=== PATIENT | male | born 1980 | race Caucasian/White ===

== ENCOUNTER 2020-09-11 11:51 | Inpatient (IN) | payer MEDICARE, MEDICAID ==
[~2020-09-11] VITALS: Ht 167.6 cm; Wt 78.3 kg
[2020-09-11] MEDS ORDERED: ZOLPIDEM TARTRATE 10 MG TABLET PO PRN (16:45)
[2020-09-12 02:51] VITALS: BP 101/65
[2020-09-12] MEDS ORDERED: PNEUMOCOCCAL VACCINE POLYVALENT 0.5 ML VIAL [PPSV23] IM. ONE (04:30)
[2020-09-12] MEDS ORDERED: MAGNESIUM HYDROXIDE SUSPENSION 30 ML UDCUP PO PRN (07:15)
[2020-09-12] MEDS ORDERED: DOCUSATE SODIUM 100 MG CAPSULE PO PRN (07:15)
[2020-09-12] MEDS ORDERED: MAG HYDROX/AL HYDROX/SIMETH ES 30 ML SUSPENSION UDCUP PO PRN (07:15)
[2020-09-12] MEDS ORDERED: CloNIDine HCL 0.1 MG TABLET PO PRN (07:15)
[2020-09-12] MEDS ORDERED: GuaiFENesin/D-METHORPHAN [SUGAR-FREE] 200-20MG/10 ML SYRUP UDCUP PO PRN (07:15)
[2020-09-12] MEDS ORDERED: IBUPROFEN 400 MG TABLET PO PRN (07:15)
[2020-09-12] MEDS ORDERED: LOPERAMIDE HCL 2 MG CAPSULE PO PRN (07:15)
[2020-09-12] MEDS ORDERED: PETROLATUM,WHITE 28 GM JELLY TP PRN (07:15)
[2020-09-12] MEDS ORDERED: NICOTINE 14 MG/24 HOUR PATCH TD PRN (07:15)
[2020-09-12] MEDS ORDERED: ONDANSETRON HCL 4 MG TABLET PO PRN (07:15)
[2020-09-12] MEDS ORDERED: ACETAMINOPHEN 325 MG TABLET PO PRN (07:15)
[2020-09-12] MEDS ORDERED: ALBUTEROL SULFATE HFA 90 MCG/PUFF 8 GM INHALER IH PRN (07:15)
[2020-09-12] MEDS ORDERED: INSULIN LISPRO 100 UNITS/ML SQ PRN (07:30)
[2020-09-12] MEDS ORDERED: GLUCAGON,HUMAN RECOMBINANT 1 MG VIAL IM PRN ×2 (07:30→11:30)
[2020-09-12 08:15] VITALS: BP 110/73
[2020-09-12 08:45] LABS: BASOPHILS % (AUTO) 0.1 % (0.0-2.0); EOSINOPHILS % (AUTO) 1.3 % (1.0-6.0); HEMATOCRIT 49.7 % (41-53); HEMOGLOBIN 16.7 g/dL (13.5-17.5); LYMPHOCYTES # (AUTO) 1.2 K/uL (1.0-4.8); LYMPHOCYTES % (AUTO) 21.7 % (22.0-44.0); MEAN CORPUSCULAR HGB CONC 33.5 G/dL (31.0-37.0); MEAN CORPUSCULAR VOLUME 90 fL (80-100); MONOCYTES # (AUTO) 0.3 K/uL (0.1-1.0); MONOCYTES % (AUTO) 5.5 % (2.0-9.0); NEUTROPHILS # (AUTO) 3.9 K/uL (1.8-7.7); NEUTROPHILS % (AUTO) 71.4 % (40.0-70.0); PLATELET COUNT (AUTO) 178 K/uL (150-450); RED BLOOD CELL COUNT(AUTO) 5.55 MIL/uL (4.50-5.90); RED CELL DISTRIBUTION WIDTH 13.9 % (11.5-14.5)
[2020-09-12 09:04] LABS: HEMOGLOBIN A1C 9.6 % (3.8-5.6)
[2020-09-12 09:55] LABS: ALANINE AMINOTRANSFERASE 30 U/L (12-78); ALKALINE PHOSPHATASE 127 U/L (46-116); ANION GAP 7 mmol/L (8-16); ASPARTATE AMINOTRANSFERASE 25 U/L (15-37); BILIRUBIN,TOTAL 0.9 mg/dL (0.1-1.0); CALCIUM, TOTAL 9.7 mg/dL (8.8-10.5); CARBON DIOXIDE 27 mmol/L (22-29); CHLORIDE 98 mmol/L (98-107); CHOL/HDL RATIO 6.4 (4.2-7.3); CHOLESTEROL 210 mg/dL (131-200); CREATININE 1.06 mg/dL (0.60-1.30); GLOMERULAR FILTR. RATE CALC > 60 mL/min (>60); HDL CHOLESTEROL 33 mg/dL (40-60); LDL CHOL (CALC.) 131 mg/dL (0-130); POTASSIUM 4.7 mmol/L (3.5-5.1); SODIUM SERUM 132 mmol/L (136-145); THYROID STIMULATING HORMONE 2.19 uIU/mL (0.36-3.74); TOTAL PROTEIN, SERUM 7.4 g/dL (6.4-8.2); TRIGLYCERIDES 232 mg/dL (15-150); UREA NITROGEN, BLOOD 22 mg/dL (7-18)
[2020-09-12 10:02] LABS: GLUCOSE,RANDOM 454 mg/dL (70-110)
[2020-09-12 10:31] LABS: FREE T4 (FREE THYROXINE) 1.56 ng/dL (0.76-1.46)
[2020-09-12] MEDS ORDERED: INSULIN LISPRO 100 UNITS/ML SQ ONE (11:05)
[2020-09-12 11:38] LABS: GLUCOMETER DEV NAME(LOC) BV2X.; GLUCOSE,POINT OF CARE 548 MG/DL (70-110)
[2020-09-12] MEDS ORDERED: ARIP10TA38 PO (12:10)
[2020-09-12] MEDS ORDERED: HALO100V4 IM (12:14)
[2020-09-12] MEDS ORDERED: INSLAN SQ (12:14)
[2020-09-12] MEDS: ARIPiprazole 15 MG TABLET PO SCH (13:22)
[2020-09-12] MEDS: SERTRALINE HCL 50 MG TABLET PO SCH (13:22)
[2020-09-12 16:14] VITALS: BP 99/68
[2020-09-12 16:22] LABS: GLUCOMETER DEV NAME(LOC) BV2X.; GLUCOSE,POINT OF CARE 297 MG/DL (70-110)
[2020-09-12] MEDS: INSULIN LISPRO 100 UNITS/ML SQ PRN ×2 (17:34→21:06)
[2020-09-12 20:19] LABS: GLUCOMETER DEV NAME(LOC) BV2X.; GLUCOSE,POINT OF CARE 260 MG/DL (70-110)
[2020-09-12] MEDS: INSULIN GLARGINE,HUM.REC.ANLOG 100 UNITS/ML SQ SCH (21:05)
[2020-09-13 00:05] VITALS: BP 101/67
[2020-09-13 06:15] LABS: GLUCOMETER DEV NAME(LOC) BV2X.; GLUCOSE,POINT OF CARE 225 MG/DL (70-110)
[2020-09-13] MEDS: INSULIN LISPRO 100 UNITS/ML SQ PRN ×3 (06:48→16:42)
[2020-09-13] MEDS: ARIPiprazole 15 MG TABLET PO SCH (08:21)
[2020-09-13] MEDS: SERTRALINE HCL 50 MG TABLET PO SCH (08:22)
[2020-09-13 08:36] VITALS: BP 104/61
[2020-09-13 11:13] LABS: GLUCOMETER DEV NAME(LOC) BV2X.; GLUCOSE,POINT OF CARE 316 MG/DL (70-110)
[2020-09-13 16:10] VITALS: BP 106/71
[2020-09-13 16:48] LABS: GLUCOMETER DEV NAME(LOC) BV2X.; GLUCOSE,POINT OF CARE 381 MG/DL (70-110)
[2020-09-13] MEDS: INSULIN GLARGINE,HUM.REC.ANLOG 100 UNITS/ML SQ SCH (21:17)
[2020-09-13 21:37] LABS: GLUCOMETER DEV NAME(LOC) BV2X.; GLUCOSE,POINT OF CARE 248 MG/DL (70-110)
[2020-09-14 00:22] VITALS: BP 102/66
[2020-09-14] MEDS: INSULIN LISPRO 100 UNITS/ML SQ PRN ×4 (07:15→22:02)
[2020-09-14 07:23] LABS: GLUCOMETER DEV NAME(LOC) BV2X.; GLUCOSE,POINT OF CARE 288 MG/DL (70-110)
[2020-09-14 08:00] LABS: ANION GAP 8 mmol/L (8-16); CARBON DIOXIDE 30 mmol/L (22-29); CHLORIDE 106 mmol/L (98-107); CREATININE 1.02 mg/dL (0.60-1.30); GLOMERULAR FILTR. RATE CALC > 60 mL/min (>60); GLUCOSE,RANDOM 277 mg/dL (70-110); POTASSIUM 4.4 mmol/L (3.5-5.1); SODIUM SERUM 144 mmol/L (136-145); UREA NITROGEN, BLOOD 22 mg/dL (7-18)
[2020-09-14 08:03] VITALS: BP 106/60
[2020-09-14] MEDS: ARIPiprazole 15 MG TABLET PO SCH (08:35)
[2020-09-14] MEDS: SERTRALINE HCL 50 MG TABLET PO SCH (08:35)
[2020-09-14 11:22] LABS: GLUCOMETER DEV NAME(LOC) BV2X.; GLUCOSE,POINT OF CARE 318 MG/DL (70-110)
[2020-09-14 16:05] VITALS: BP 107/69
[2020-09-14 16:26] LABS: GLUCOMETER DEV NAME(LOC) BV2X.; GLUCOSE,POINT OF CARE 273 MG/DL (70-110)
[2020-09-14 20:11] LABS: GLUCOMETER DEV NAME(LOC) BV2X.; GLUCOSE,POINT OF CARE 280 MG/DL (70-110)
[2020-09-14] MEDS: INSULIN GLARGINE,HUM.REC.ANLOG 100 UNITS/ML SQ SCH (22:02)
[2020-09-14 22:26] LABS: GLUCOMETER DEV NAME(LOC) BV2X.; GLUCOSE,POINT OF CARE 314 MG/DL (70-110)
[2020-09-15 00:45] VITALS: BP 114/78
[2020-09-15] MEDS: INSULIN LISPRO 100 UNITS/ML SQ PRN ×2 (06:08→11:12)
[2020-09-15 06:16] LABS: GLUCOMETER DEV NAME(LOC) BV2X.; GLUCOSE,POINT OF CARE 351 MG/DL (70-110)
[2020-09-15 08:14] VITALS: BP 127/81
[2020-09-15] MEDS: ARIPiprazole 15 MG TABLET PO SCH (09:13)
[2020-09-15] MEDS: SERTRALINE HCL 50 MG TABLET PO SCH (09:13)
[2020-09-15] MEDS: LORazepam 2 MG TABLET PO PRN (09:13)
[2020-09-15 11:15] LABS: GLUCOMETER DEV NAME(LOC) BV2X.; GLUCOSE,POINT OF CARE 316 MG/DL (70-110)
[2020-09-15 16:04] VITALS: BP 131/78
[2020-09-15] MEDS ORDERED: INSULIN LISPRO 100 UNITS/ML SQ ONE (17:00)
[2020-09-15 17:09] LABS: GLUCOMETER DEV NAME(LOC) BV2X.; GLUCOSE,POINT OF CARE > 600 MG/DL (70-110)
[2020-09-15 19:20] LABS: GLUCOMETER DEV NAME(LOC) BV2X.; GLUCOSE,POINT OF CARE > 600 MG/DL (70-110)
[2020-09-15] MEDS ORDERED: INSULIN GLARGINE,HUM.REC.ANLOG 100 UNITS/ML SQ SCH (21:00)
[2020-09-15 23:07] LABS: GLUCOMETER DEV NAME(LOC) ERT.5; GLUCOSE,POINT OF CARE 365 MG/DL (70-110)
[2020-09-16 02:52] VITALS: BP 116/79
[2020-09-16 03:04] LABS: GLUCOMETER DEV NAME(LOC) BV2X.; GLUCOSE,POINT OF CARE 323 MG/DL (70-110)
[2020-09-16] MEDS: INSULIN LISPRO 100 UNITS/ML SQ PRN ×5 (03:18→20:21)
[2020-09-16 06:06] LABS: GLUCOMETER DEV NAME(LOC) BV2X.; GLUCOSE,POINT OF CARE 185 MG/DL (70-110)
[2020-09-16 08:28] VITALS: BP 104/66
[2020-09-16 09:09] LABS: GLUCOMETER DEV NAME(LOC) BV2X.; GLUCOSE,POINT OF CARE 270 MG/DL (70-110)
[2020-09-16] MEDS: SERTRALINE HCL 50 MG TABLET PO SCH (09:17)
[2020-09-16] MEDS: ARIPiprazole 15 MG TABLET PO SCH (09:17)
[2020-09-16] MEDS: INSULIN GLARGINE,HUM.REC.ANLOG 100 UNITS/ML SQ SCH ×2 (09:37→16:14)
[2020-09-16] MEDS: HALOPERIDOL 5 MG TABLET PO PRN (10:26)
[2020-09-16] MEDS: LORazepam 2 MG TABLET PO PRN (10:26)
[2020-09-16 11:38] LABS: GLUCOMETER DEV NAME(LOC) BV2X.; GLUCOSE,POINT OF CARE 349 MG/DL (70-110)
[2020-09-16 16:08] VITALS: BP 110/72
[2020-09-16 16:44] LABS: GLUCOMETER DEV NAME(LOC) BV2X.; GLUCOSE,POINT OF CARE 313 MG/DL (70-110)
[2020-09-16 20:40] LABS: GLUCOMETER DEV NAME(LOC) BV2X.; GLUCOSE,POINT OF CARE 369 MG/DL (70-110)
[2020-09-17 03:17] VITALS: BP 106/72
[2020-09-17 06:34] LABS: GLUCOMETER DEV NAME(LOC) BV2X.; GLUCOSE,POINT OF CARE 275 MG/DL (70-110)
[2020-09-17] MEDS: INSULIN LISPRO 100 UNITS/ML SQ PRN ×4 (06:53→21:21)
[2020-09-17 07:36] LABS: COVID AG,FIA SOURCE NASAL SWAB
[2020-09-17 08:12] VITALS: BP 114/75
[2020-09-17] MEDS: SERTRALINE HCL 50 MG TABLET PO SCH (08:18)
[2020-09-17] MEDS: ARIPiprazole 15 MG TABLET PO SCH (08:18)
[2020-09-17] MEDS: INSULIN GLARGINE,HUM.REC.ANLOG 100 UNITS/ML SQ SCH ×2 (08:41→16:49)
[2020-09-17] MEDS: LORazepam 2 MG TABLET PO PRN (10:55)
[2020-09-17 12:28] LABS: GLUCOMETER DEV NAME(LOC) BV2X.; GLUCOSE,POINT OF CARE 338 MG/DL (70-110)
[2020-09-17 16:04] VITALS: BP 108/74
[2020-09-17 16:36] LABS: GLUCOMETER DEV NAME(LOC) BV2X.; GLUCOSE,POINT OF CARE 305 MG/DL (70-110)
[2020-09-17 20:30] LABS: GLUCOMETER DEV NAME(LOC) BV2X.; GLUCOSE,POINT OF CARE 289 MG/DL (70-110)
[2020-09-18 01:47] VITALS: BP 125/85
[2020-09-18 06:22] LABS: GLUCOMETER DEV NAME(LOC) BV2X.; GLUCOSE,POINT OF CARE 211 MG/DL (70-110)
[2020-09-18] MEDS: INSULIN LISPRO 100 UNITS/ML SQ PRN ×2 (07:02→21:56)
[2020-09-18 08:15] VITALS: BP 122/84
[2020-09-18] MEDS: INSULIN GLARGINE,HUM.REC.ANLOG 100 UNITS/ML SQ SCH ×2 (09:20→17:09)
[2020-09-18] MEDS: ARIPiprazole 15 MG TABLET PO SCH (09:24)
[2020-09-18] MEDS: SERTRALINE HCL 50 MG TABLET PO SCH (09:25)
[2020-09-18 11:49] LABS: GLUCOMETER DEV NAME(LOC) BV2X.; GLUCOSE,POINT OF CARE 461 MG/DL (70-110)
[2020-09-18] MEDS ORDERED: INSULIN LISPRO 100 UNITS/ML SQ ONE (12:00)
[2020-09-18] MEDS ORDERED: INSULIN REGULAR, HUMAN 100 UNITS/ML SQ ONE (12:00)
[2020-09-18 16:08] VITALS: BP 111/78
[2020-09-18 21:21] LABS: GLUCOMETER DEV NAME(LOC) BV2X.; GLUCOSE,POINT OF CARE 201 MG/DL (70-110)
[2020-09-19 03:46] VITALS: BP 126/68
[2020-09-19 06:06] LABS: GLUCOMETER DEV NAME(LOC) BV2X.; GLUCOSE,POINT OF CARE 127 MG/DL (70-110)
[2020-09-19] MEDS: INSULIN LISPRO 100 UNITS/ML SQ PRN ×4 (06:08→20:27)
[2020-09-19 08:13] VITALS: BP 122/78
[2020-09-19 08:43] LABS: GLUCOMETER DEV NAME(LOC) BV2X.; GLUCOSE,POINT OF CARE 96 MG/DL (70-110)
[2020-09-19] MEDS: ARIPiprazole 15 MG TABLET PO SCH ×2 (09:01→16:33)
[2020-09-19] MEDS: SERTRALINE HCL 50 MG TABLET PO SCH (09:01)
[2020-09-19] MEDS: INSULIN GLARGINE,HUM.REC.ANLOG 100 UNITS/ML SQ SCH ×2 (09:04→16:41)
[2020-09-19 09:18] LABS: GLUCOMETER DEV NAME(LOC) BV2X.; GLUCOSE,POINT OF CARE 145 MG/DL (70-110)
[2020-09-19 11:26] LABS: GLUCOMETER DEV NAME(LOC) BV2X.; GLUCOSE,POINT OF CARE 134 MG/DL (70-110)
[2020-09-19] MEDS: LORazepam 2 MG TABLET PO PRN ×2 (13:49→18:45)
[2020-09-19] MEDS: HALOPERIDOL 5 MG TABLET PO PRN ×2 (13:49→18:46)
[2020-09-19 16:12] VITALS: BP 104/66
[2020-09-19 16:48] LABS: GLUCOMETER DEV NAME(LOC) BV2X.; GLUCOSE,POINT OF CARE 260 MG/DL (70-110)
[2020-09-19 20:35] LABS: GLUCOMETER DEV NAME(LOC) BV2S.; GLUCOSE,POINT OF CARE 318 MG/DL (70-110)
[2020-09-20] VITALS: BP 108/64
[2020-09-20 06:24] LABS: GLUCOMETER DEV NAME(LOC) BV2S.; GLUCOSE,POINT OF CARE 214 MG/DL (70-110)
[2020-09-20] MEDS: INSULIN LISPRO 100 UNITS/ML SQ PRN ×3 (06:52→20:56)
[2020-09-20 08:05] LABS: ANION GAP 3 mmol/L (8-16); CALCIUM, TOTAL 9.2 mg/dL (8.8-10.5); CARBON DIOXIDE 33 mmol/L (22-29); CHLORIDE 108 mmol/L (98-107); CREATININE 1.19 mg/dL (0.60-1.30); GLOMERULAR FILTR. RATE CALC > 60 mL/min (>60); GLUCOSE,RANDOM 206 mg/dL (70-110); POTASSIUM 4.6 mmol/L (3.5-5.1); SODIUM SERUM 144 mmol/L (136-145); UREA NITROGEN, BLOOD 27 mg/dL (7-18)
[2020-09-20 08:19] VITALS: BP 103/65
[2020-09-20] MEDS: OMEGA-3/DHA/EPA/FISH OIL 1,000 MG CAPSULE PO SCH (09:12)
[2020-09-20] MEDS: ARIPiprazole 15 MG TABLET PO SCH ×2 (09:12→16:39)
[2020-09-20] MEDS: SERTRALINE HCL 50 MG TABLET PO SCH (09:12)
[2020-09-20] MEDS: INSULIN GLARGINE,HUM.REC.ANLOG 100 UNITS/ML SQ SCH ×2 (09:15→16:35)
[2020-09-20] MEDS: LORazepam 2 MG TABLET PO PRN (09:54)
[2020-09-20] MEDS: HALOPERIDOL 5 MG TABLET PO PRN ×2 (09:54→18:28)
[2020-09-20] MEDS ORDERED: INSULIN LISPRO 100 UNITS/ML SQ ONE (11:15)
[2020-09-20 11:24] LABS: GLUCOMETER DEV NAME(LOC) BV2S.; GLUCOSE,POINT OF CARE 474 MG/DL (70-110)
[2020-09-20 13:21] LABS: GLUCOMETER DEV NAME(LOC) BV2S.; GLUCOSE,POINT OF CARE 418 MG/DL (70-110)
[2020-09-20 16:22] LABS: GLUCOMETER DEV NAME(LOC) BV2S.; GLUCOSE,POINT OF CARE 244 MG/DL (70-110)
[2020-09-20 16:23] VITALS: BP 109/69
[2020-09-20 21:06] LABS: GLUCOMETER DEV NAME(LOC) BV2S.; GLUCOSE,POINT OF CARE 253 MG/DL (70-110)
[2020-09-21 03:38] VITALS: BP 110/64
[2020-09-21 06:09] LABS: GLUCOMETER DEV NAME(LOC) BV2S.; GLUCOSE,POINT OF CARE 203 MG/DL (70-110)
[2020-09-21] MEDS: INSULIN LISPRO 100 UNITS/ML SQ PRN ×4 (06:40→20:59)
[2020-09-21 07:48] LABS: APPEARANCE,URINE TURBID (CLEAR); BILIRUBIN,URINE NEGATIVE (NEGATIVE); GLUCOSE, URINE (UA) >=1000 mg/dL (NEGATIVE); KETONES,URINE TRACE mg/dL (NEGATIVE); LEUKOCYTE ESTERASE ,URINE NEGATIVE (NEGATIVE); NITRATE,URINE NEGATIVE (NEGATIVE); OCCULT BLOOD,URINE TRACE (NEGATIVE); PH,URINE 5.5 (5.0-8.0); PROTEIN,URINE NEGATIVE (NEGATIVE); UROBILINOGEN,URINE 0.2 mg/dL (<=1.0)
[2020-09-21 07:54] LABS: AMPHET/METH SCREEN,URINE NEGATIVE (NEGATIVE); BARBITURATE SCREEN, URINE NEGATIVE (NEGATIVE); BENZODIAZEPINES SCREEN,URINE NEGATIVE (NEGATIVE); CANNABINOID SCREEN,URINE NEGATIVE (NEGATIVE); COCAINE SCREEN,URINE NEGATIVE (NEGATIVE); METHADONE SCREEN, URINE NEGATIVE (NEGATIVE); OPIATE SCREEN,URINE NEGATIVE (NEGATIVE)
[2020-09-21 07:57] LABS: PHENCYCLIDINE SCREEN,URINE NEGATIVE (NEGATIVE)
[2020-09-21 07:59] LABS: AMORPHOUS SEDIMENT,UR Many /LPF (None Seen); BACTERIA,URINE None Seen /HPF (None Seen); RBC,URINE 0-2 /HPF (0-2); WBC,URINE None Seen /HPF (0-5)
[2020-09-21 08:08] VITALS: BP 107/64
[2020-09-21] MEDS: ARIPiprazole 15 MG TABLET PO SCH ×2 (09:09→16:42)
[2020-09-21] MEDS: SERTRALINE HCL 50 MG TABLET PO SCH (09:09)
[2020-09-21] MEDS: OMEGA-3/DHA/EPA/FISH OIL 1,000 MG CAPSULE PO SCH (09:09)
[2020-09-21] MEDS: INSULIN GLARGINE,HUM.REC.ANLOG 100 UNITS/ML SQ SCH ×2 (09:18→16:44)
[2020-09-21 09:59] LABS: GLUCOMETER DEV NAME(LOC) BV2S.; GLUCOSE,POINT OF CARE 349 MG/DL (70-110)
[2020-09-21 11:53] LABS: GLUCOMETER DEV NAME(LOC) BV2S.; GLUCOSE,POINT OF CARE 297 MG/DL (70-110)
[2020-09-21 16:26] VITALS: BP 109/69
[2020-09-21 16:34] LABS: GLUCOMETER DEV NAME(LOC) BV2X.; GLUCOSE,POINT OF CARE 261 MG/DL (70-110)
[2020-09-21 20:37] LABS: GLUCOMETER DEV NAME(LOC) BV2X.; GLUCOSE,POINT OF CARE 197 MG/DL (70-110)
[2020-09-21] MEDS: HALOPERIDOL 5 MG TABLET PO PRN (20:56)
[2020-09-22 05:52] VITALS: BP 96/65
[2020-09-22 07:00] LABS: GLUCOMETER DEV NAME(LOC) BV2X.; GLUCOSE,POINT OF CARE 91 MG/DL (70-110)
[2020-09-22 08:44] VITALS: BP 102/68
[2020-09-22] MEDS: ARIPiprazole 15 MG TABLET PO SCH (09:18)
[2020-09-22] MEDS: OMEGA-3/DHA/EPA/FISH OIL 1,000 MG CAPSULE PO SCH (09:18)
[2020-09-22] MEDS: SERTRALINE HCL 50 MG TABLET PO SCH (09:19)
[2020-09-22] MEDS: INSULIN GLARGINE,HUM.REC.ANLOG 100 UNITS/ML SQ SCH ×2 (09:20→16:43)
[2020-09-22 09:29] LABS: GLUCOMETER DEV NAME(LOC) BV2X.; GLUCOSE,POINT OF CARE 186 MG/DL (70-110)
[2020-09-22] MEDS: INSULIN LISPRO 100 UNITS/ML SQ PRN ×3 (11:37→21:02)
[2020-09-22 11:41] LABS: GLUCOMETER DEV NAME(LOC) BV2X.; GLUCOSE,POINT OF CARE 335 MG/DL (70-110)
[2020-09-22] MEDS ORDERED: ARIPiprazole LAUROXIL ER SUSPENSION 882 MG/3.2 ML SYRINGE IM ONE (12:45)
[2020-09-22] MEDS ORDERED: ARIPiprazole LAUROXIL,SUBMICR. ER SUSPENSION 675 MG/2.4 ML SYRINGE IM ONE (12:45)
[2020-09-22 16:22] LABS: GLUCOMETER DEV NAME(LOC) BV2X.; GLUCOSE,POINT OF CARE 314 MG/DL (70-110)
[2020-09-22 16:28] VITALS: BP 110/64
[2020-09-22] MEDS: HALOPERIDOL 5 MG TABLET PO PRN (18:59)
[2020-09-22 20:48] LABS: GLUCOMETER DEV NAME(LOC) BV2X.; GLUCOSE,POINT OF CARE 251 MG/DL (70-110)
[2020-09-23 02:40] VITALS: BP 110/64
[2020-09-23 06:32] LABS: GLUCOMETER DEV NAME(LOC) BV2X.; GLUCOSE,POINT OF CARE 313 MG/DL (70-110)
[2020-09-23] MEDS: INSULIN LISPRO 100 UNITS/ML SQ PRN ×4 (06:39→20:59)
[2020-09-23 08:12] VITALS: BP 125/77
[2020-09-23] MEDS: SERTRALINE HCL 50 MG TABLET PO SCH (08:26)
[2020-09-23] MEDS: OMEGA-3/DHA/EPA/FISH OIL 1,000 MG CAPSULE PO SCH (08:26)
[2020-09-23 08:49] LABS: GLUCOMETER DEV NAME(LOC) BV2X.; GLUCOSE,POINT OF CARE 376 MG/DL (70-110)
[2020-09-23] MEDS: INSULIN GLARGINE,HUM.REC.ANLOG 100 UNITS/ML SQ SCH ×2 (08:55→16:56)
[2020-09-23 11:32] LABS: GLUCOMETER DEV NAME(LOC) BV2X.; GLUCOSE,POINT OF CARE 396 MG/DL (70-110)
[2020-09-23 16:08] VITALS: BP 108/64
[2020-09-23 16:24] LABS: GLUCOMETER DEV NAME(LOC) BV2X.; GLUCOSE,POINT OF CARE 171 MG/DL (70-110)
[2020-09-23 20:40] LABS: GLUCOMETER DEV NAME(LOC) BV2X.; GLUCOSE,POINT OF CARE 301 MG/DL (70-110)
[2020-09-24 05:22] VITALS: BP 102/64
[2020-09-24 05:52] LABS: GLUCOMETER DEV NAME(LOC) BV2X.; GLUCOSE,POINT OF CARE 307 MG/DL (70-110)
[2020-09-24] MEDS: INSULIN LISPRO 100 UNITS/ML SQ PRN ×2 (06:49→11:31)
[2020-09-24 07:40] LABS: COVID AG,FIA SOURCE NASOPHARYNGEAL
[2020-09-24 08:04] VITALS: BP 108/72
[2020-09-24] MEDS: OMEGA-3/DHA/EPA/FISH OIL 1,000 MG CAPSULE PO SCH (08:29)
[2020-09-24] MEDS: SERTRALINE HCL 50 MG TABLET PO SCH (08:29)
[2020-09-24] MEDS: INSULIN GLARGINE,HUM.REC.ANLOG 100 UNITS/ML SQ SCH ×2 (09:36→16:51)
[2020-09-24 11:22] LABS: GLUCOMETER DEV NAME(LOC) BV2X.; GLUCOSE,POINT OF CARE 253 MG/DL (70-110)
[2020-09-24] MEDS ORDERED: OMEG-135 PO (11:49)
[2020-09-24] MEDS ORDERED: SERT-158 PO (11:49)
[2020-09-24] MEDS ORDERED: INSLAN SQ (11:50)
[2020-09-24 16:14] VITALS: BP 114/73
[2020-09-24 22:15] LABS: GLUCOMETER DEV NAME(LOC) BV2X.; GLUCOSE,POINT OF CARE 237 MG/DL (70-110)
== END 2020-09-24 17:15 | disposition home or self-care (01) | DRG 885 ==
LOC: B2X 09-12 01:10
PROVIDERS: ADMIT Psychiatry & Neurology Child & Adolescent Psychiatry; ATTEND Psychiatry & Neurology Child & Adolescent Psychiatry
PROC: 3E0234Z Introduction of Serum, Toxoid and Vaccine into Muscle, Percutaneous Approach (ICD-10-PCS; principal; 2020-09-12)
DX: F25.1 Schizoaffective disorder, depressive type (principal); E11.65 Type 2 diabetes mellitus with hyperglycemia; R45.851 Suicidal ideations; E87.1 Hypo-osmolality and hyponatremia; Z20.822 Contact with and (suspected) exposure to COVID-19; E78.5 Hyperlipidemia, unspecified; F32.9 Major depressive disorder, single episode, unspecified; Z59.0 Homelessness; Z79.4 Long term (current) use of insulin; Z88.8 Allergy status to other drugs, medicaments and biological substances; Z91.5 Personal history of self-harm; Z79.899 Other long term (current) drug therapy; Z23 Encounter for immunization
CPT/HCPCS: 80048; 80053; 80061; 80307; 81001; 82962; 83036; 84436; 84439; 84443; 85025; 90732; 96360; 96361; 96372; 99285; A9575; J1815; J7030; 36415-L1; 36415-TC

== ENCOUNTER 2020-09-15 20:38 | Emergency (ER) | payer MEDICARE, OTHER ==
[~2020-09-15] VITALS: Ht 167.6 cm; Wt 78.8 kg
[~2020-09-15 20:38] MED LIST: ARIP10TA38 PO; HALO100V4 IM; INSLAN SQ
[2020-09-15 22:49] LABS: BASOPHILS % (AUTO) 0.1 % (0.0-2.0); EOSINOPHILS % (AUTO) 2.3 % (1.0-6.0); HEMATOCRIT 42.9 % (41-53); HEMOGLOBIN 14.9 g/dL (13.5-17.5); LYMPHOCYTES # (AUTO) 1.4 K/uL (1.0-4.8); LYMPHOCYTES % (AUTO) 22.8 % (22.0-44.0); MEAN CORPUSCULAR HEMOGLOBIN 30.7 pg (26.0-34.0); MEAN CORPUSCULAR HGB CONC 34.7 G/dL (31.0-37.0); MEAN CORPUSCULAR VOLUME 89 fL (80-100); MONOCYTES # (AUTO) 0.6 K/uL (0.1-1.0); MONOCYTES % (AUTO) 8.8 % (2.0-9.0); NEUTROPHILS # (AUTO) 4.2 K/uL (1.8-7.7); PLATELET COUNT (AUTO) 172 K/uL (150-450); RED BLOOD CELL COUNT(AUTO) 4.83 MIL/uL (4.50-5.90); RED CELL DISTRIBUTION WIDTH 13.7 % (11.5-14.5)
[2020-09-15 23:08] LABS: ALANINE AMINOTRANSFERASE 42 U/L (12-78); ALBUMIN 3.8 g/dL (3.4-5.0); ALKALINE PHOSPHATASE 113 U/L (46-116); ANION GAP 7 mmol/L (8-16); ASPARTATE AMINOTRANSFERASE 16 U/L (15-37); BILIRUBIN,TOTAL 0.7 mg/dL (0.1-1.0); CALCIUM, TOTAL 9.2 mg/dL (8.8-10.5); CARBON DIOXIDE 28 mmol/L (22-29); CHLORIDE 100 mmol/L (98-107); GLOMERULAR FILTR. RATE CALC > 60 mL/min (>60); POTASSIUM 3.9 mmol/L (3.5-5.1); SODIUM SERUM 135 mmol/L (136-145); TOTAL PROTEIN, SERUM 6.5 g/dL (6.4-8.2); UREA NITROGEN, BLOOD 22 mg/dL (7-18)
[2020-09-15 23:12] LABS: GLUCOSE,RANDOM 435 mg/dL (70-110)
[2020-09-15] MEDS ORDERED: SODIUM CHLORIDE 0.9% 2,000 ML IV ONE (23:15)
[2020-09-16 01:18] LABS: GLUCOMETER DEV NAME(LOC) ERT.5; GLUCOSE,POINT OF CARE 338 MG/DL (70-110)
[2020-09-16] MEDS ORDERED: INSULIN REGULAR, HUMAN 100 UNITS/ML SQ ONE (01:30)
[2020-09-16 01:58] VITALS: BP 125/66
[2020-09-16 02:08] LABS: GLUCOMETER DEV NAME(LOC) ERT.5; GLUCOSE,POINT OF CARE 358 MG/DL (70-110)
== END 2020-09-16 04:21 | disposition home or self-care (01) ==
LOC: EMS 20:45
DX: E10.65 Type 1 diabetes mellitus with hyperglycemia (principal); R45.851 Suicidal ideations; F17.210 Nicotine dependence, cigarettes, uncomplicated; Z88.8 Allergy status to other drugs, medicaments and biological substances; Z79.4 Long term (current) use of insulin
CPT/HCPCS: 80053; 82962; 85025; 96360; 96361; 96372; 99285; J1815; J7030